=== PATIENT | female | born 1980 | race Caucasian/White ===

== ENCOUNTER 2016-10-18 14:57 | Emergency (ER) | payer MEDICAID ==
[~2016-10-18] VITALS: Ht 165.1 cm; Wt 101.6 kg
[~2016-10-18 14:57] MED LIST: IBUP-1969
[2016-10-18 15:27] VITALS: BP_SYST 133
[2016-10-18] MEDS ORDERED: HYDROcodone/ACETAMIN 5-325 MG TAB (NORCO/ VICODIN) PO ONE (15:45)
[2016-10-18] MEDS ORDERED: KETOROLAC TROMETHAMINE 60 MG/2 ML VIAL IM ONE (15:45)
[2016-10-18 15:53] LABS: BILIRUBIN,URINE NEGATIVE (NEGATIVE); BLOOD, URINE NEGATIVE (NEGATIVE); CLARITY/URINE CLEAR (CLEAR); COLOR,URINE YELLOW (YELLOW); GLUCOSE,URINE NEGATIVE (NEGATIVE); KETONES,URINE NEGATIVE (NEGATIVE); LEUKOCYTE ESTERASE ,URINE NEGATIVE (NEGATIVE); NITRITE, URINE NEGATIVE (NEGATIVE); PROTEIN URINE NEGATIVE (NEGATIVE); UROBILINOGEN,URINE 0.2 (0.2-1.0)
[2016-10-18 17:10] VITALS: BP_SYST 121
== END 2016-10-18 17:10 | disposition home or self-care (01) ==
LOC: SED 14:57
DX: M54.9 Dorsalgia, unspecified (principal); R11.0 Nausea; R50.9 Fever, unspecified
CPT/HCPCS: 81003; 96372; 99283; J1885

== ENCOUNTER 2018-02-17 18:16 | Emergency (ER) | payer MEDICAID ==
[~2018-02-17] VITALS: Ht 165.1 cm; Wt 90.7 kg
[2018-02-17 18:27] VITALS: BP_SYST 146
--- NOTE | 2018-02-17 18:40 | NUR ---
Patient to ER bed 1 to gown for evaluation. Side rails up.
--- NOTE | 2018-02-17 18:43 | NUR ---
Pt presents to ED c/o rash over torso and legs x 3 days. Pt reports incident started fish x 3 daysm. Pt also reports sudden onset of stress. Pt denies significant med hx.
--- NOTE | 2018-02-17 18:45 | NUR ---
ER NPCox at bedside examining patient.
--- NOTE | 2018-02-17 18:55 | NUR ---
# 22 gauge angiocath placed to LFA. Use of asceptic technique. Opsite placed over site. Blood return noted. Flushed with 10 cc of normal saline. No evidence of infiltration noted. Patient tolerated well.
[2018-02-17] MEDS ORDERED: EPINEPHrine 1 MG/ML AMP IM ONE ×2 (19:00)
[2018-02-17] MEDS ORDERED: NACL 0.9% 1,000 ML IV ONE (19:00)
[2018-02-17] MEDS ORDERED: DIPHENHYDRAMINE INJ 50 MG/ML VIAL IVP ONE (19:00)
[2018-02-17] MEDS ORDERED: FAMOTIDINE PF 20 MG/2 ML VIAL IVP ONE ×2 (19:00→19:15)
[2018-02-17] MEDS ORDERED: methylPREDNISolone SOD SUCC/PF 62.5 MG/ML VIAL IVP ONE (19:00)
--- NOTE | 2018-02-17 19:15 | NUR ---
Pt medicate tolerated well.Continuing to monitor
--- NOTE | 2018-02-17 19:20 | NUR ---
Report given to Helen BOONE
--- NOTE | 2018-02-17 19:20 | NUR ---
Patient received from nurse Cohn.
[2018-02-17 21:04] VITALS: BP_SYST 126
--- NOTE | 2018-02-17 21:04 | NUR ---
Patient given written and verbal discharge instructions and verbalizes understanding. ER MD discussed with patient the results and treatment provided. Patient in stable condition. ID arm band removed. IV catheter removed intact and dressing applied, no active bleeding. Rx given. Patient educated on pain management and to follow up with PMD. Pain Scale 1/10. patient verbalized that this level is tolerable for her. Opportunity for questions provided and answered. Medication side effect fact sheet provided.
== END 2018-02-17 21:04 | disposition home or self-care (01) ==
LOC: SED 18:16
DX: L50.9 Urticaria, unspecified (principal); R03.0 Elevated blood-pressure reading, without diagnosis of hypertension
CPT/HCPCS: 96372; 96374; 96375; 99284; J0171; J1200; J2930; J3490; J7030